=== PATIENT | male | born 1960 | race Caucasian/White ===

== ENCOUNTER → 2020-03-23 | Outpatient (CLI) | payer MEDICARE, SELFPAY | LOC: KOH-I 14:31 | DX: M25.511 Pain in right shoulder (principal); G89.29 Other chronic pain; M77.8 Other enthesopathies, not elsewhere classified; S46.111A Strain of muscle, fascia and tendon of long head of biceps, right arm, initial encounter; X58.XXXA Exposure to other specified factors, initial encounter | CPT/HCPCS: 73221 ==